=== PATIENT | female | born 1975 | race African-American/Black ===

== ENCOUNTER 2016-12-02 22:48 | Emergency (ER) | payer BC ==
[~2016-12-02] VITALS: Ht 167.6 cm; Wt 122.5 kg
[2016-12-03 00:39] LABS: BASO # 0.1 x10^3/uL (0.0-0.2); BASO % 0 % (0-3); EOS % 3 % (0-3); HEMATOCRIT 34.1 % (36.0-47.0); HEMOGLOBIN 10.8 g/dL (12.0-15.5); LYMPH # 2.1 x10^3/uL (1.0-4.8); LYMPH % 18 % (24-48); MEAN CORPUSCULAR HEMOGLOBIN 26 pg (25-35); MEAN CORPUSCULAR HGB CONC 32 g/dL (31-37); MEAN CORPUSCULAR VOLUME 82 fL (79-100); MONO % 6 % (0-9); NEUT % 73 % (31-73); PLATELET COUNT 288 x10^3/uL (140-400); RED BLOOD COUNT 4.15 x10^6/uL (3.50-5.40); RED CELL DISTRIBUTION WIDTH 15.3 % (11.5-14.5); WHITE BLOOD COUNT 12.1 x10^3/uL (4.0-11.0)
[2016-12-03 00:52] LABS: BILIRUBIN,URINE NEGATIVE (NEG); GLUCOSE,URINE NEGATIVE (NEG); NITRITE,URINE NEGATIVE (NEG); PH,URINE 7.5; PROTEIN,URINE NEGATIVE (NEG-TRACE)
[2016-12-03 00:53] LABS: CALCIUM 7.7 mg/dL (8.5-10.1); CREATININE 0.8 mg/dL (0.6-1.0); GFR 95.2; POTASSIUM 3.6 mmol/L (3.5-5.1)
[2016-12-03 00:59] LABS: ALBUMIN 3.1 g/dL (3.4-5.0); ALBUMIN/GLOBULIN RATIO 0.8 (1.0-1.7); TOTAL BILIRUBIN 0.3 mg/dL (0.2-1.0); TOTAL PROTEIN 6.9 g/dL (6.4-8.2)
[2016-12-03 01:00] VITALS: BP 114/79
[2016-12-03 01:01] LABS: BACTERIA,URINE MODERATE /HPF (0-FEW); RBC,URINE OCC /HPF (0-2); SQUAMOUS EPITHELIAL CELL,UR FEW /LPF
--- NOTE | 2016-12-03 05:12 | ED.ADGEN ---
Past Medical History Past Medical History: Anxiety, Depression Past Surgical History: Cholecystectomy, , Other Additional Past Surgical Histo: L ANKLE, GASTRIC BYPASS Alcohol Use: None Drug Use: None Adult General Chief Complaint Chief Complaint: MULTIPLE COMPLAINTS [facility] Patient is a 41 year old -[place] female presents with multiple complaints. Patient reports dizziness as lightheadedness earlier today while at work. Symptoms are worse with standing and improves when supine. Patient denies , vertigo, nausea, vomiting, chest pain, palpitations, extremity weakness or loss of sensation. Patient denies vomiting, diarrhea. No fever chills or sweats. Patient also reports low back pain with tingling in her right lower extremity. Patient denies history of hypertension. Review of Systems Review of Systems ROS as per HPI. Allergies Allergies Allergies Coded Allergies Type Severity Reaction Last Updated Verified No Known Drug Allergies 12/02/16 No Physical Exam Physical Exam Constitutional: Well developed, well nourished, no acute distress, non-toxic appearance. [] HENT: Normocephalic, atraumatic, bilateral external ears normal, oropharynx moist, no oral exudates, nose normal. [] Eyes: PERRLA, EOMI, conjunctiva normal, no discharge. [] Neck: Normal range of motion, no tenderness, supple, no stridor. [] Cardiovascular:Heart rate regular rhythm, no murmur [] Lungs & Thorax: Bilateral breath sounds clear to auscultation [] Abdomen: Bowel sounds normal, soft, no tenderness, no masses, no pulsatile masses. [] Skin: Warm, dry, no erythema, no rash. [] Back: midline tenderness, no CVA tenderness,lower lumbar paravertebral pain, tenderness reproduces with rotation [] Extremities: No tenderness, no cyanosis, no clubbing, ROM intact, no edema. [] Neurologic: Alert and oriented X 3, normal motor function, normal sensory function, no focal deficits noted. [] Psychologic: Affect normal, judgement normal, mood normal. [] Current Patient Data Vital Signs Vital Signs Date Time Temp Pulse Resp B/P (MAP) Pulse Ox O2 Delivery O2 Flow Rate FiO2 12/03/16 01:00 60 22 114/79 (91) 98 Room Air 12/02/16 23:11 98.5 98.5 Lab Values Laboratory Tests Test 12/03/16 00:01 12/03/16 00:45 White Blood Count 12.1 x10^3/uL (4.0-11.0) H Red Blood Count 4.15 x10^6/uL (3.50-5.40) Hemoglobin 10.8 g/dL (12.0-15.5) L Hematocrit 34.1 % (36.0-47.0) L Mean Corpuscular Volume 82 fL (79-100) Mean Corpuscular Hemoglobin 26 pg (25-35) Mean Corpuscular Hemoglobin Concent 32 g/dL (31-37) Red Cell Distribution Width 15.3 % (11.5-14.5) H Platelet Count 288 x10^3/uL (140-400) Neutrophils (%) (Auto) 73 % (31-73) Lymphocytes (%) (Auto) 18 % (24-48) L Monocytes (%) (Auto) 6 % (0-9) Eosinophils (%) (Auto) 3 % (0-3) Basophils (%) (Auto) 0 % (0-3) Neutrophils # (Auto) 8.8 x10^3uL (1.8-7.7) H Lymphocytes # (Auto) 2.1 x10^3/uL (1.0-4.8) Monocytes # (Auto) 0.7 x10^3/uL (0.0-1.1) Eosinophils # (Auto) 0.3 x10^3/uL (0.0-0.7) Basophils # (Auto) 0.1 x10^3/uL (0.0-0.2) Sodium Level 141 mmol/L (136-145) Potassium Level 3.6 mmol/L (3.5-5.1) Chloride Level 106 mmol/L (98-107) Carbon Dioxide Level 28 mmol/L (21-32) Anion Gap 7 (6-14) Blood Urea Nitrogen 7 mg/dL (7-20) Creatinine 0.8 mg/dL (0.6-1.0) Estimated GFR (Cockcroft-Gault) 95.2 BUN/Creatinine Ratio 9 (6-20) Glucose Level 87 mg/dL (70-99) Calcium Level 7.7 mg/dL (8.5-10.1) L Total Bilirubin 0.3 mg/dL (0.2-1.0) Aspartate Amino Transferase (AST) 22 U/L (15-37) Alanine Aminotransferase (ALT) 24 U/L (14-59) Alkaline Phosphatase 132 U/L (46-116) H Total Protein 6.9 g/dL (6.4-8.2) Albumin 3.1 g/dL (3.4-5.0) L Albumin/Globulin Ratio 0.8 (1.0-1.7) L Urine Collection Type Unknown Urine Color Yellow Urine Clarity Clear Urine pH 7.5 Urine Specific [place] 1.015 Urine Protein Negative mg/dL (NEG-TRACE) Urine Glucose (UA) Negative mg/dL (NEG) Urine Ketones (Stick) Negative mg/dL (NEG) Urine Blood Negative (NEG) Urine Nitrite Negative (NEG) Urine Bilirubin Negative (NEG) Urine Urobilinogen Dipstick 1.0 mg/dL (0.2 mg/dL) Urine Leukocyte Esterase Negative (NEG) Urine RBC Occ /HPF (0-2) Urine WBC 1-4 /HPF (0-4) Urine Squamous Epithelial Cells Few /LPF Urine Bacteria Moderate /HPF (0-FEW) Urine Mucus Slight /LPF Laboratory Tests 12/03/16 00:01 Laboratory Tests 12/03/16 00:01 EKG EKG []KKEKG: NSR, rate 68, no RBBB. Radiology/Procedures Radiology/Procedures [] Course & Med Decision Making Course & Med Decision Making Pertinent Labs and Imaging studies reviewed. (See chart for details) [Orthostatic dizziness, normal vital signs in the ED. Labs reviewed. Low back pain without neuro deficits. ] Dragon Disclaimer Dragon Disclaimer This electronic medical record was generated, in whole or in part, using a voice recognition dictation system. PATRICK BURNETTE DO Dec 03, 2016 05:12
--- NOTE | 2016-12-03 08:42 | EKG ---
[id number] [place] [id number] Test Date: 2016-12-02 Test Time: 23:23:56 Pat Name: DARCI ESCALANTE Department: Room: Gender: F Kindergarten Assistant: : [id number] Requested By: PATRICK BURNETTE Order Number: [id number] Reading MD: Bony Jules Measurements Intervals Lucinda Rate: 68 P: 42 IA: 156 QRS: 26 QRSD: 136 T: 15 QT: 416 QTc: 443 Interpretive Statements SINUS RHYTHM RIGHT BUNDLE BRANCH BLOCK Electronically Signed On 12-04-2016 15:06:40 CDT by Bony Jules
== END 2016-12-03 01:50 | disposition home or self-care (01) ==
LOC: ER 22:48
DX: R42 Dizziness and giddiness (principal); M54.5 Low back pain; Z98.84 Bariatric surgery status
CPT/HCPCS: 36415; 80053; 81001; 81025; 85027; 87086; 93005; 99285-25

== ENCOUNTER 2017-06-01 22:01 | Inpatient (IN) | payer BC ==
[2017-06-01 22:40] LABS: ADD MAN DIFF? NO
[2017-06-01 22:45] LABS: BILIRUBIN,URINE NEGATIVE (NEG); CLARITY,URINE CLEAR; COLOR,URINE YELLOW; GLUCOSE,URINE NEGATIVE (NEG); NITRITE,URINE NEGATIVE (NEG); PH,URINE 5.5; PROTEIN,URINE NEGATIVE (NEG-TRACE)
[2017-06-01 22:46] LABS: BASO # 0.1 x10^3/uL (0.0-0.2); BASO % 1 % (0-3); EOS # 0.3 x10^3/uL (0.0-0.7); EOS % 2 % (0-3); HEMOGLOBIN 10.4 g/dL (12.0-15.5); LYMPH # 2.8 x10^3/uL (1.0-4.8); LYMPH % 25 % (24-48); MEAN CORPUSCULAR HEMOGLOBIN 26 pg (25-35); MEAN CORPUSCULAR HGB CONC 32 g/dL (31-37); MEAN CORPUSCULAR VOLUME 79 fL (79-100); MONO # 0.9 x10^3/uL (0.0-1.1); MONO % 8 % (0-9); NEUT # 7.3 x10^3uL (1.8-7.7); NEUT % 65 % (31-73); PLATELET COUNT 324 x10^3/uL (140-400); RED BLOOD COUNT 4.06 x10^6/uL (3.50-5.40); RED CELL DISTRIBUTION WIDTH 15.9 % (11.5-14.5); WHITE BLOOD COUNT 11.3 x10^3/uL (4.0-11.0)
[2017-06-01 22:50] LABS: ANION GAP 13 (6-14); BLOOD UREA NITROGEN 7 mg/dL (7-20); BUN/CREATININE RATIO 9 (6-20); CALCIUM 7.8 mg/dL (8.5-10.1); CARBON DIOXIDE 25 mmol/L (21-32); CHLORIDE 105 mmol/L (98-107); CREATININE 0.8 mg/dL (0.6-1.0); GFR 95.2; GLUCOSE 121 mg/dL (70-99); POTASSIUM 3.3 mmol/L (3.5-5.1); SODIUM 143 mmol/L (136-145)
[2017-06-01 22:55] LABS: BACTERIA,URINE FEW /HPF (0-FEW); SQUAMOUS EPITHELIAL CELL,UR MOD /LPF
[2017-06-01 22:56] LABS: ALBUMIN 3.2 g/dL (3.4-5.0); ALBUMIN/GLOBULIN RATIO 0.8 (1.0-1.7); ALK PHOS 116 U/L (46-116); ALT (SGPT) 19 U/L (14-59); AST (SGOT) 21 U/L (15-37); NEG OBC SER NEG; POS OBC SER POS; PREG TEST PT QUAL NEGATIVE (NEG); TOTAL BILIRUBIN 0.2 mg/dL (0.2-1.0); TOTAL PROTEIN 7.3 g/dL (6.4-8.2)
[2017-06-01] MEDS: IV NORMAL SALINE 1000ML BAG 1,000 ML IV (23:09)
[2017-06-01] MEDS: KETOROLAC 30 MG/ML INJ. IV (23:09)
[2017-06-01] MEDS: ONDANSETRON PF 4 MG/2 ML VIAL. IV (23:10)
[2017-06-02] MEDS: MORPHINE SULFATE 10 MG/ML VIAL. IV (00:45)
[2017-06-02] MEDS ORDERED: ONDANSETRON PF 4 MG/2 ML VIAL. IV (00:45)
[2017-06-02] MEDS: TAMSULOSIN 0.4 MG CAP.ER.24H. PO ×2 (01:25→10:33)
[2017-06-02] MEDS: PROMETHAZINE 12.5 MG in IV NORMAL SALINE 50ML 50 ML IV (01:26)
[2017-06-02] MEDS: IV NORMAL SALINE 1000ML BAG 1,000 ML IV ×3 (01:26→17:33)
[2017-06-02] MEDS: KETOROLAC 15 MG/ML VIAL. IV ×2 (02:07→10:34)
[2017-06-02] MEDS: MORPHINE SULFATE 2 MG/ML DISP.SYRIN. IV ×3 (03:23→08:48)
[2017-06-02] MEDS: POTASSIUM CHLORIDE 20 MEQ TABLET.ER. PO (08:50)
[2017-06-02] MEDS ORDERED: KETOROLAC 15 MG/ML VIAL. IV (11:00)
[2017-06-02] MEDS: KETOROLAC 30 MG/ML INJ. IV ×2 (17:30→23:31)
[2017-06-02] MEDS ORDERED: TAMSULOSIN 0.4 MG CAP.ER.24H. PO (21:00)
[2017-06-03 05:42] LABS: ADD MAN DIFF? NO
[2017-06-03 05:45] LABS: BASO % 0 % (0-3); EOS # 0.2 x10^3/uL (0.0-0.7); EOS % 3 % (0-3); HEMATOCRIT 30.8 % (36.0-47.0); HEMOGLOBIN 9.9 g/dL (12.0-15.5); LYMPH # 1.7 x10^3/uL (1.0-4.8); LYMPH % 20 % (24-48); MEAN CORPUSCULAR HEMOGLOBIN 25 pg (25-35); MEAN CORPUSCULAR HGB CONC 32 g/dL (31-37); MEAN CORPUSCULAR VOLUME 79 fL (79-100); MONO # 0.6 x10^3/uL (0.0-1.1); MONO % 7 % (0-9); NEUT # 6.2 x10^3uL (1.8-7.7); NEUT % 71 % (31-73); PLATELET COUNT 254 x10^3/uL (140-400); RED BLOOD COUNT 3.92 x10^6/uL (3.50-5.40); RED CELL DISTRIBUTION WIDTH 15.6 % (11.5-14.5); WHITE BLOOD COUNT 8.8 x10^3/uL (4.0-11.0)
[2017-06-03 06:32] LABS: ANION GAP 9 (6-14); BLOOD UREA NITROGEN 4 mg/dL (7-20); CALCIUM 7.1 mg/dL (8.5-10.1); CARBON DIOXIDE 25 mmol/L (21-32); CHLORIDE 107 mmol/L (98-107); CREATININE 0.6 mg/dL (0.6-1.0); GFR 132.7; GLUCOSE 94 mg/dL (70-99); POTASSIUM 3.3 mmol/L (3.5-5.1); SODIUM 141 mmol/L (136-145)
[2017-06-03] MEDS: TAMSULOSIN 0.4 MG CAP.ER.24H. PO (08:14)
[2017-06-03] MEDS ORDERED: DESFLURANE 61 TO 120 MINUTES IH (08:18)
[2017-06-03] MEDS ORDERED: MIDAZOLAM HCL/PF 2 MG/2 ML VIAL. (08:19)
[2017-06-03] MEDS ORDERED: ONDANSETRON PF 4 MG/2 ML VIAL. (08:20)
[2017-06-03] MEDS ORDERED: PROPOFOL 20 ML IV (08:20)
[2017-06-03] MEDS ORDERED: DEXAMETHASONE SOD PHOS 20 MG/5 ML VIAL. (08:20)
[2017-06-03] MEDS: KETOROLAC 30 MG/ML INJ. IV (08:38)
[2017-06-03] MEDS ORDERED: LIDOCAINE 2% JELLY 6ML IN APPLICATOR. (08:54)
[2017-06-03] MEDS: IV RINGERS,LACTATED 1000ML 1,000 ML IV (09:30)
[2017-06-03] MEDS ORDERED: ceFAZolin 1GM IVPB FOR OMNI 100 ML IV (09:51)
[2017-06-03] MEDS ORDERED: PROCHLORPERAZINE 10 MG/2 ML VIAL. IV (10:00)
[2017-06-03] MEDS ORDERED: LIDOCAINE 1% PF 2 ML VIAL. ID (10:00)
[2017-06-03] MEDS ORDERED: MORPHINE SULFATE 2 MG/ML DISP.SYRIN. IV (10:00)
[2017-06-03] MEDS ORDERED: HYDROmorphone 2 MG/ML VIAL IV (10:00)
[2017-06-03] MEDS ORDERED: fentaNYL PF VIAL 100 MCG/2 ML VIAL IV ×2 (10:00)
[2017-06-03] MEDS: IOHEXOL 300 MG/ML 100ML VIAL. (10:09)
[2017-06-03] MEDS ORDERED: fentaNYL PF VIAL 100 MCG/2 ML VIAL (10:12)
[2017-06-03] MEDS: FLU VACC QS2017-18 (36MOS+)/PF 0.5 ML SYRINGE. VAX IM (14:51)
== END 2017-06-03 16:04 | disposition home or self-care (01) | DRG 694 ==
LOC: ER 22:01 → 5 NORTH 06-02 00:30
PROC: 0T768DZ Dilation of Right Ureter with Intraluminal Device, Via Natural or Artificial Opening Endoscopic (ICD-10-PCS; principal; 2017-06-03 09:48)
PROC: BT1D1ZZ Fluoroscopy of Right Kidney, Ureter and Bladder using Low Osmolar Contrast (ICD-10-PCS; 2017-06-03 09:48)
DX: N13.2 Hydronephrosis with renal and ureteral calculous obstruction (principal); E46 Unspecified protein-calorie malnutrition; F41.9 Anxiety disorder, unspecified; E83.51 Hypocalcemia; D72.829 Elevated white blood cell count, unspecified; D64.9 Anemia, unspecified; R73.9 Hyperglycemia, unspecified; F32.9 Major depressive disorder, single episode, unspecified; E87.6 Hypokalemia; Z82.49 Family history of ischemic heart disease and other diseases of the circulatory system; Z90.49 Acquired absence of other specified parts of digestive tract; Z98.84 Bariatric surgery status; Z98.891 History of uterine scar from previous surgery; Z97.5 Presence of (intrauterine) contraceptive device
CPT/HCPCS: 36415; 74176; 74420; 80048; 80053; 81001; 84703; 85025; 90686; 96374; 96375; 99285; 99285-25; C1713; C1769; J0690; J1100; J1885; J2250; J2270; J2405; J2550; J2704; J3010; J7030; J7120; Q9967

== ENCOUNTER 2017-06-04 07:12 | Emergency (ER) | payer BC ==
[2017-06-04 07:44] LABS: CLARITY,URINE TURBID; COLOR,URINE RED; GLUCOSE,URINE NEGATIVE (NEG); PROTEIN,URINE >=300 mg/dL (NEG-TRACE)
[2017-06-04] MEDS: IV NORMAL SALINE 1000ML BAG 1,000 ML IV ×2 (07:48)
[2017-06-04] MEDS: ONDANSETRON PF 4 MG/2 ML VIAL. IV ×2 (07:52)
[2017-06-04] MEDS: KETOROLAC 30 MG/ML INJ. IV ×2 (07:53)
[2017-06-04] MEDS: MORPHINE SULFATE 10 MG/ML VIAL. IV ×2 (07:55)
[2017-06-04 08:02] LABS: ADD MAN DIFF? NO
[2017-06-04 08:08] LABS: BASO # 0.1 x10^3/uL (0.0-0.2); BASO % 0 % (0-3); EOS % 0 % (0-3); HEMATOCRIT 32.3 % (36.0-47.0); HEMOGLOBIN 10.3 g/dL (12.0-15.5); LYMPH # 1.8 x10^3/uL (1.0-4.8); LYMPH % 14 % (24-48); MEAN CORPUSCULAR HEMOGLOBIN 25 pg (25-35); MEAN CORPUSCULAR HGB CONC 32 g/dL (31-37); MEAN CORPUSCULAR VOLUME 79 fL (79-100); MONO # 0.8 x10^3/uL (0.0-1.1); MONO % 6 % (0-9); NEUT % 79 % (31-73); PLATELET COUNT 321 x10^3/uL (140-400); RED CELL DISTRIBUTION WIDTH 15.7 % (11.5-14.5); WHITE BLOOD COUNT 12.7 x10^3/uL (4.0-11.0)
[2017-06-04 08:09] LABS: RBC,URINE TNTC /HPF (0-2)
[2017-06-04 08:10] LABS: BACTERIA,URINE MODERATE /HPF (0-FEW); SQUAMOUS EPITHELIAL CELL,UR MANY /LPF; WBC,URINE FOBS /HPF (0-4)
[2017-06-04 08:13] LABS: BARBITURATES NEG (NEG); BENZODIAZEPINES NEG (NEG); CANNABINOIDS NEG (NEG); COCAINE NEG (NEG); METHADONE NEG (NEG); OPIATES NEG (NEG); PHENCYCLIDINE NEG (NEG)
[2017-06-04 08:17] LABS: AMPHETAMINE/METHAMPHETAMINE NEG (NEG); ETHANOL, URINE NEG (NEG)
[2017-06-04 08:25] LABS: ANION GAP 8 (6-14); BLOOD UREA NITROGEN 8 mg/dL (7-20); BUN/CREATININE RATIO 11 (6-20); CALCIUM 8.3 mg/dL (8.5-10.1); CARBON DIOXIDE 28 mmol/L (21-32); CHLORIDE 103 mmol/L (98-107); CREATININE 0.7 mg/dL (0.6-1.0); GLUCOSE 107 mg/dL (70-99); POTASSIUM 3.2 mmol/L (3.5-5.1); SODIUM 139 mmol/L (136-145)
[2017-06-04 08:30] LABS: ALBUMIN 2.9 g/dL (3.4-5.0); ALBUMIN/GLOBULIN RATIO 0.7 (1.0-1.7); ALK PHOS 117 U/L (46-116); ALT (SGPT) 23 U/L (14-59); AST (SGOT) 25 U/L (15-37); LIPASE 151 U/L (73-393); TOTAL BILIRUBIN 0.5 mg/dL (0.2-1.0); TOTAL PROTEIN 7.1 g/dL (6.4-8.2)
[2017-06-04] MEDS: POTASSIUM CHLORIDE 20 MEQ TABLET.ER. PO ×2 (09:12)
== END 2017-06-04 09:25 | disposition home or self-care (01) ==
LOC: ER 09:25
DX: R10.9 Unspecified abdominal pain (principal); R31.9 Hematuria, unspecified; F41.9 Anxiety disorder, unspecified; F32.9 Major depressive disorder, single episode, unspecified; Z87.442 Personal history of urinary calculi; Z98.84 Bariatric surgery status; Z90.49 Acquired absence of other specified parts of digestive tract; Z87.891 Personal history of nicotine dependence
CPT/HCPCS: 36415; 74176; 80053; 80307; 81001; 83690; 85025; 87086; 96361; 96374; 96375; 99285-25; J1885; J2270; J2405; J7030